=== PATIENT | female | born 1995 | race Caucasian/White ===

== ENCOUNTER 2019-10-04 16:08 | Emergency (ER) | payer MEDICAID ==
[2019-10-04] MEDS ORDERED: methylPREDNISolone Sodium Succinate 125 MG/2 ML SDV IVPUSH ONE (16:09)
[2019-10-04] MEDS ORDERED: Ketorolac 30 MG/ML SDV IVPUSH ONE (16:09)
--- NOTE | 2019-10-04 16:17 | EDM.PDOC ---
ED HPI GENERAL MEDICAL PROBLEM - General Chief Complaint: Back Pain or Injury Stated Complaint: BACK PAIN Time Seen by Provider: 10/04/19 16:14 Source of Information: Reports: Patient, EMS History Limitations: Reports: No Limitations - History of Present Illness INITIAL COMMENTS - FREE TEXT/NARRATIVE: HISTORY AND PHYSICAL: History of present illness: Patient is a 24-year-old female presents to the ED via EMS for low back pain. Patient reports history back pain due to DDD and bulging discs. She states she has not had much pain in the past 6 months but over the past couple of days felt some tightness in her lower back. She states today she was doing a burpee and when she went to squat down she felt a pop in her back. She states she fell to the ground and was unable to get up so she call the ambulance. She denies any numbness, tingling, or pain in to her legs. She denies saddle anesthesia, bowel or bladder incontinence, lower extremity weakness, fevers or chills. Review of systems: As per history of present illness and below otherwise all systems reviewed and negative. Past medical history: As per history of present illness and as reviewed below otherwise noncontributory. Surgical history: As per history of present illness and as reviewed below otherwise noncontributory. Social history: No reported history of drug or alcohol abuse. Family history: As per history of present illness and as reviewed below otherwise noncontributory. Physical exam: General: Patient sitting comfortably in no acute distress and nontoxic appearing HEENT: Atraumatic, normocephalic, pupils reactive, negative for conjunctival pallor or scleral icterus, mucous membranes moist, throat clear, neck supple, nontender, trachea midline. No meningeal signs. Lungs: Clear to auscultation, breath sounds equal bilaterally, chest nontender. Heart: S1S2, regular, negative for clicks, rubs, or overt murmur. Abdomen: Soft, nondistended, nontender. Negative for masses or hepatosplenomegaly. Negative for costovertebral tenderness. No rigidity, rebound , guarding. Pelvis: Stable nontender. Genitourinary: Deferred. Rectal: Deferred. Spine: Lumbar vertebral and sacral tenderness to palpation. Extremities: Atraumatic, negative for cords or calf pain. Neurovascular unremarkable. Neuro: Awake, alert, oriented. Cranial nerves II through XII unremarkable. Cerebellum unremarkable. Motor and sensory unremarkable throughout. Exam nonfocal. Notes: Patient having significant pain in ED and difficulty sitting up and ambulating due to the pain. I did offer patient admission for pain management which she declined. Patient advised to return to ED if any new or worsening symptoms. Diagnostics: lumbar spine x-ray lumbar CT Therapeutics: 30mg Toradol IV 125mg Solumedrol IV 4mg Morphine IV 1mg Dilaudid IV Prescriptions: [place] (#12) Medrol dosepack Impression: Lumbar back pain Plan: Heat or ice and ibuprofen as needed You may take norco as needed for severe pain, do not take while driving as it may make you drowsy Follow up with primary care provider Return to ED as needed as discussed Definitive disposition and diagnosis as appropriate pending reevaluation and review of above. Treatments PRO SHOP ATTENDANT: Reports: IV/IO, Other Medication(s) Other Treatments PRO SHOP ATTENDANT: 100 mcg fentynal Lower Back Pain Score (Numeric/FACES): 10 - Related Data Allergies Allergy/AdvReac Type Severity Reaction Status Date / Time No Known Allergies Allergy Verified 10/04/19 17:01 Home Meds: Home Meds Hydrocodone/Acetaminophen [[place] 5-325 Tablet] 1 each PO Q6H #12 tablet [Rx] methylPREDNISolone [Medrol] 4 mg PO ASDIRECTED #1 tab.ds.pk 10/04/19 [Rx] ED ROS GENERAL - Review of Systems Review Of Systems: Comprehensive ROS is negative, except as noted in HPI. ED EXAM,LOWER BACK PAIN/INJURY - Physical Exam Exam: See Below (see dictation) Course - Vital Signs Last Recorded V/S: Last Vital Signs Temp 97.2 F 10/04/19 16:10 Pulse 49 L 10/04/19 18:13 Resp 16 10/04/19 18:13 BP 107/45 L 10/04/19 18:13 Pulse Ox 99 10/04/19 18:13 - Orders/Labs/Meds Meds: Medications Discontinued Medications Generic Name Dose Route Start Last Admin Trade Name Freq PRN Reason Stop Dose Admin Hydromorphone HCl 1 mg 10/04/19 18:50 10/04/19 19:00 Dilaudid IVPUSH 10/04/19 18:51 1 mg ONETIME ONE Administration Ketorolac Tromethamine 30 mg 10/04/19 16:09 10/04/19 16:15 Toradol IVPUSH 10/04/19 16:10 30 mg ONETIME ONE Administration Methylprednisolone Sodium Succinate 125 mg 10/04/19 16:09 10/04/19 16:17 Solu-Medrol IVPUSH 10/04/19 16:10 125 mg ONETIME ONE Administration Morphine Sulfate 4 mg 10/04/19 16:53 10/04/19 17:04 Morphine IVPUSH 10/04/19 16:54 4 mg ONETIME ONE Administration Departure - Departure Time of Disposition: 19:40 Disposition: Home, Self-Care 01 Condition: Good Clinical Impression: Lumbar back pain - Discharge Information Prescriptions: Hydrocodone/Acetaminophen [[place] 5-325 Tablet] 1 each PO Q6H #12 tablet Forms: ED Department Discharge Additional Instructions: The following information is given to patients seen in the emergency department who are being discharged to home. This information is to outline your options for follow-up care. We provide all patients seen in our emergency department with a follow-up referral. The need for follow-up, as well as the timing and circumstances, are variable depending upon the specifics of your emergency department visit. If you don't have a primary care physician on staff, we will provide you with a referral. We always advise you to contact your personal physician following an emergency department visit to inform them of the circumstance of the visit and for follow-up with them and/or the need for any referrals to a consulting specialist. The emergency department will also refer you to a specialist when appropriate. This referral assures that you have the opportunity for follow-up care with a specialist. All of these measure are taken in an effort to provide you with optimal care, which includes your follow-up. Under all circumstances we always encourage you to contact your private physician who remains a resource for coordinating your care. When calling for follow-up care, please make the office aware that this follow-up is from your recent emergency room visit. If for any reason you are refused follow-up, please contact the [facility] Emergency Department at and asked to speak to the emergency department charge nurse. [facility] [address] [place] [id number] [facility] [address] [place] [address] Heat or ice and ibuprofen as needed You may take norco as needed for severe pain, do not take while driving as it may make you drowsy Follow up with primary care provider Return to ED as needed as discussed Sepsis Event Note - Evaluation Sepsis Screening Result: No Definite Risk - Focused Exam Vital Signs: Vital Signs Temp Pulse Resp BP Pulse Ox 10/04/19 18:13 49 L 16 107/45 L 99 10/04/19 17:05 53 L 102/51 L 100 10/04/19 16:10 97.2 F 68 22 H 121/55 L 97 Date Exam was Performed: 10/04/19 Time Exam was Performed: 19:37
[2019-10-04] MEDS ORDERED: Morphine 4 MG/ML Syringe IVPUSH ONE (16:53)
--- NOTE | 2019-10-04 17:36 | CR ---
INDICATION: Low back pain. History of degenerative disease per patient. TECHNIQUE: Lumbar spine radiograph 3 view COMPARISON: None FINDINGS: Bones: Alignment is normal. No acute fractures or aggressive osseous lesions seen. Joints: Disc spaces are unremarkable. The facet joints are unremarkable in appearance. Soft tissues: IUD noted in the central pelvis. IMPRESSION: 1. Negative lumbar spine series. Dictated by Carlo Sheets MD @ 10/04/2019 5:35:37 PM Dictated by: Carlo Sheets MD @ 10/04/2019 17:35:46 (Electronically Signed)
--- NOTE | 2019-10-04 18:38 | CT ---
INDICATION: 24-year-old female. Severe lower back pain. Unable to lie on back for CT imaging. TECHNIQUE: CT lumbar spine without i.v. contrast. Coronal and sagittal reformats were obtained. Images obtained with patient in decubitus position. COMPARISON: Lumbar spine radiographs earlier on 10/04/2019. FINDINGS: Vertebral alignment: Alignment is normal. Vertebrae: No acute fractures or aggressive osseous lesions are identified. Bilateral SI joint sclerosis, noted on coronal reformat series 203, image 61. No erosive changes or sacral fracture. No pars defects. Discs and facet joints: Disc spaces are within normal limits. The facet joints are unremarkable in appearance. Extraspinal findings: 2-3 mm right renal calculus identified on series 202, image 33. No associated hydronephrosis. IUD noted. IMPRESSION: 1. No acute fracture or malalignment in the lumbar spine. No compression abnormality. 2. Bilateral SI joint sclerosis suspected, which can be associated with inflammatory bowel disease or possible psoriatic arthritis. 3. Nonobstructing right renal calculus, size 2-3 mm. Dictated by Carlo Sheets MD @ 10/04/2019 6:35:42 PM Please note that all CT scans at this facility use dose modulation, iterative reconstruction, and/or weight-based dosing when appropriate to reduce radiation dose to as low as reasonably achievable. Dictated by: Carlo Sheets MD @ 10/04/2019 18:35:48 (Electronically Signed)
[2019-10-04] MEDS ORDERED: HYDROmorphone 1 MG/ML Syringe IVPUSH ONE (18:50)
== END 2019-10-04 20:01 | disposition home or self-care (01) ==
LOC: MW.ED 16:08
DX: M54.5 Low back pain (principal)
CPT/HCPCS: 72100; 72131; 96374; 96375; 99284; J1170; J1885; J2270; J2930